=== PATIENT | male | born 1970 | race Two or more races ===

== ENCOUNTER 2017-02-10 12:28 | Observation (INO) | payer OTHER ==
[~2017-02-10] VITALS: Ht 167.6 cm; Wt 98.7 kg
[~2017-02-10 12:28] MED LIST: ALBU8.5H5 INH; CHOL20002 PO; LACT10SO38 PO; MULT-257 PO; PANT20TA2 PO; PROP20TA PO; SPIR25TA3 PO; VITA80004 PO
[2017-02-10] MEDS ORDERED: ONDANSETRON 2MG/ML, 2ML IVPush ONE (13:00)
[2017-02-10] MEDS ORDERED: SODIUM CHLORIDE FLUSH 10ML SYR IVF ONE (13:00)
[2017-02-10] MEDS ORDERED: MORPHINE SULFATE 4 MG/ML, 1ML ONE ×3 (13:21→19:36)
[2017-02-10] MEDS ORDERED: ONDANSETRON 2MG/ML, 2ML ONE (13:21)
[2017-02-10 13:35] LABS: BLOOD UREA NITROGEN 11 mg/dL (7-18)
[2017-02-10] MEDS: MORPHINE SULFATE 4 MG/ML, 1ML IVPush PRN ×4 (13:35→22:33)
[2017-02-10 13:42] LABS: ASPARTATE AMINO TRANSFERASE 58 U/L (15-37)
[2017-02-10] MEDS ORDERED: SODIUM CHLORIDE 0.9% 1,000 ML IV ONE (14:21)
[2017-02-10] MEDS ORDERED: ONDANSETRON 2MG/ML, 2ML IVPush PRN (14:30)
[2017-02-10] MEDS ORDERED: SODIUM CHLORIDE FLUSH 10ML SYR IVF PRN (14:30)
[2017-02-10] MEDS ORDERED: MORPHINE SULFATE 4 MG/ML, 1ML IVPush PRN (14:30)
[2017-02-10] MEDS ORDERED: ONDANSETRON ODT 4 MG PO PRN (15:30)
[2017-02-10] MEDS ORDERED: DOCUSATE 100 MG CAPSULE PO PRN (15:30)
[2017-02-10] MEDS ORDERED: APAP/CODEINE 300/30MG TABLET PO PRN (21:00)
[2017-02-10] MEDS ORDERED: ACETAMINOPHEN 325 MG TABLET PO PRN (21:00)
[2017-02-10] MEDS: OXYcodone IR 5MG TABLET PO PRN (21:11)
[2017-02-10] MEDS: LACTULOSE 10 GM/15 ML UDC PO SCH (21:15)
[2017-02-10] MEDS: ONDANSETRON 2MG/ML, 2ML IVP PRN (22:33)
[2017-02-11] MEDS ORDERED: PROMETHAZINE 25 MG/ML, 1ML IM PRN (00:30)
[2017-02-11] MEDS: MORPHINE SULFATE 4 MG/ML, 1ML IVPush PRN ×3 (01:29→09:59)
[2017-02-11 02:00] VITALS: BP 102/68
[2017-02-11] MEDS: ONDANSETRON 2MG/ML, 2ML IVP PRN (04:57)
[2017-02-11 05:53] LABS: BLOOD UREA NITROGEN 14 mg/dL (7-18)
[2017-02-11 06:01] LABS: ASPARTATE AMINO TRANSFERASE 56 U/L (15-37)
[2017-02-11 07:27] VITALS: BP 115/75
[2017-02-11] MEDS ORDERED: PANTOPRAZOLE 20MG TABLET PO SCH (09:00)
[2017-02-11] MEDS ORDERED: SPIRONOLACTONE 25 MG TABLET PO SCH (09:00)
[2017-02-11] MEDS: LACTULOSE 10 GM/15 ML UDC PO SCH (09:00)
[2017-02-11] MEDS ORDERED: CHOLECALCIFEROL 1,000 UNIT TABLET PO SCH (09:00)
[2017-02-11] MEDS ORDERED: PROPRANOLOL 20 MG TABLET PO SCH (09:00)
[2017-02-11] MEDS ORDERED: MULTIVITAMIN 1 TABLET PO SCH (09:00)
[2017-02-11] MEDS ORDERED: VITAMIN A 10,000 UNIT CAPSULE PO SCH (09:00)
[2017-02-11] MEDS ORDERED: FENTANYL PF 100 MCG/2ML ONE (11:31)
[2017-02-11] MEDS ORDERED: MIDAZOLAM 1 MG/ML, 5ML ONE (11:31)
[2017-02-11] MEDS ORDERED: NALOXONE 1 MG/ML, 2ML ONE (11:32)
[2017-02-11] MEDS ORDERED: OXYC5TAB3 PO (12:57)
[2017-02-11] MEDS ORDERED: Ondansetron PO (12:57)
[2017-02-11 14:00] VITALS: BP 108/53
[2017-02-11] MEDS: OXYcodone IR 5MG TABLET PO PRN (17:46)
[2017-02-11 20:07] VITALS: BP 117/60
== END 2017-02-11 21:16 | disposition home or self-care (01) ==
LOC: ED 14:07 → INTOOBSV 14:21 → EDIP 14:21 → 3NW 19:02
PROVIDERS: ADMIT Internal Medicine; ATTEND Internal Medicine
DX: R16.0 Hepatomegaly, not elsewhere classified (principal); K74.60 Unspecified cirrhosis of liver; R74.0 Nonspecific elevation of levels of transaminase and lactic acid dehydrogenase [LDH]; E44.0 Moderate protein-calorie malnutrition; E72.20 Disorder of urea cycle metabolism, unspecified; Z87.891 Personal history of nicotine dependence; Z87.19 Personal history of other diseases of the digestive system
CPT/HCPCS: 36415; 47000; 76942; 80053; 81001; 82140; 83690; 83880; 85025; 85610; 85730; 88307; 88313; 88333; 88342; 96361; 96372; 96374; 96375; 96376; 99285; G0378; J2250; J2405; J2550; J3010; J7030; G0461; J2310

== ENCOUNTER 2017-02-22 23:19 | Inpatient (IN) | payer OTHER ==
[~2017-02-22] VITALS: Ht 167.6 cm; Wt 108.7 kg
[~2017-02-22 23:19] MED LIST changes: +OXYC5TAB3 PO; +Ondansetron PO
[2017-02-23] MEDS: HYDROmorphone 1 MG/ML, 1ML IVPush PRN ×2 (00:16→07:01)
[2017-02-23 00:32] LABS: ASPARTATE AMINO TRANSFERASE 58 U/L (15-37); BLOOD UREA NITROGEN 10 mg/dL (7-18)
[2017-02-23] MEDS ORDERED: ONDANSETRON 2MG/ML, 2ML ONE ×2 (00:45→01:48)
[2017-02-23] MEDS ORDERED: HYDROmorphone 1 MG/ML, 1ML ONE (00:45)
[2017-02-23] MEDS ORDERED: OMNIPAQUE 350 MG/ML, 100ML BOTTLE ONE (01:09)
[2017-02-23] MEDS ORDERED: SODIUM CHLORIDE FLUSH 10ML SYR IVF ONE ×2 (01:30)
[2017-02-23] MEDS ORDERED: ONDANSETRON 2MG/ML, 2ML IVPush ONE ×2 (02:00)
[2017-02-23] MEDS ORDERED: FENTANYL PF 100 MCG/2ML IVPush ONE (02:00)
[2017-02-23] MEDS ORDERED: FENTANYL PF 100 MCG/2ML ONE ×3 (02:02→04:13)
[2017-02-23] MEDS ORDERED: LIDOCAINE 1%, 20ML ONE (02:19)
[2017-02-23] MEDS ORDERED: MIDAZOLAM 1 MG/ML, 5ML ONE (02:40)
[2017-02-23] MEDS ORDERED: FLUMAZENIL 0.1 MG/1 ML, 5ML ONE (02:40)
[2017-02-23] MEDS ORDERED: NALOXONE 1 MG/ML, 2ML ONE (02:40)
[2017-02-23 02:47] VITALS: BP 122/53
[2017-02-23] MEDS ORDERED: LABETALOL 5MG/ML, 20ML IV PRN (03:00)
[2017-02-23] MEDS ORDERED: TRAZODONE 50MG TABLET PO PRN (03:00)
[2017-02-23] MEDS ORDERED: DOCUSATE 100 MG CAPSULE PO PRN (03:00)
[2017-02-23] MEDS ORDERED: BISACODYL 10 MG SUPP PR PRN (03:00)
[2017-02-23] MEDS ORDERED: MORPHINE SULFATE 4 MG/ML, 1ML IVPush PRN (03:00)
[2017-02-23] MEDS ORDERED: POLYETHYLENE GLYCOL 17 GM PACKET PO PRN (03:00)
[2017-02-23 03:02] VITALS: BP 109/61
[2017-02-23] MEDS ORDERED: VISIPAQUE 320 MG/ML, 150ML BOTTLE ONE (04:00)
[2017-02-23] MEDS: ONDANSETRON 2MG/ML, 2ML IVP PRN ×3 (05:56→15:43)
[2017-02-23] MEDS: SODIUM CHLORIDE 0.9% 1,000 ML IV SCH ×3 (05:58→19:04)
[2017-02-23 06:16] VITALS: BP 99/57
[2017-02-23 06:32] VITALS: BP 102/65
[2017-02-23 06:41] VITALS: BP 101/67
[2017-02-23 06:45] LABS: BLOOD UREA NITROGEN 12 mg/dL (7-18)
[2017-02-23 06:48] LABS: ASPARTATE AMINO TRANSFERASE 50 U/L (15-37)
[2017-02-23 07:27] LABS: DIFF TOTAL CELLS COUNTED 100 CELL DIFF
[2017-02-23 07:30] LABS: ANISOCYTOSIS 1+; POLYCHROMASIA 1+; VERIFY COUNTS? YES
[2017-02-23 07:34] VITALS: BP 108/68
[2017-02-23] MEDS: PANTOPRAZOLE 40 MG IV IVP SCH (08:41)
[2017-02-23] MEDS ORDERED: LACTULOSE 10 GM/15 ML UDC PO SCH (09:00)
[2017-02-23] MEDS: HYDROmorphone 2 MG/ML, 1ML IVPush PRN ×4 (09:02→16:31)
[2017-02-23] MEDS: LACTULOSE 10 GM/15 ML UDC PO SCH ×2 (11:00→21:17)
[2017-02-24] MEDS: HYDROmorphone 2 MG/ML, 1ML IVPush PRN ×3 (00:26→09:03)
[2017-02-24] MEDS: SODIUM CHLORIDE 0.9% 1,000 ML IV SCH ×2 (01:55→09:05)
[2017-02-24] MEDS: ONDANSETRON 2MG/ML, 2ML IVP PRN (05:16)
[2017-02-24 05:22] LABS: BLOOD UREA NITROGEN 24 mg/dL (7-18)
[2017-02-24 06:42] LABS: DIFF TOTAL CELLS COUNTED 100 CELL DIFF
[2017-02-24 06:52] LABS: ANISOCYTOSIS 1+; POLYCHROMASIA 1+; VERIFY COUNTS? YES
[2017-02-24] MEDS ORDERED: PROPOFOL 10 MG/ML, 100ML IV ONE (08:00)
[2017-02-24] MEDS ORDERED: VECURONIUM 10 MG ONE (08:00)
[2017-02-24] MEDS ORDERED: PROPOFOL 10 MG/ML, 20ML ONE (08:00)
[2017-02-24 08:33] LABS: ASPARTATE AMINO TRANSFERASE > 10000 U/L (15-37)
[2017-02-24] MEDS: LACTULOSE 10 GM/15 ML UDC PO SCH ×2 (09:00→09:05)
[2017-02-24 09:03] LABS: POTASSIUM,URINE RANDOM 24 mmol/L
[2017-02-24] MEDS: PANTOPRAZOLE 40 MG IV IVP SCH (09:05)
[2017-02-24] MEDS ORDERED: DEXTROSE 5% IV ONE (09:30)
[2017-02-24] MEDS ORDERED: RIFAXIMIN 550 MG TABLET PO SCH (09:30)
[2017-02-24] MEDS ORDERED: ACETYLCYSTEINE IV ONE (09:30)
[2017-02-24] MEDS ORDERED: ALBUMIN HUMAN 25% 100 ML IV SCH (10:00)
[2017-02-24] MEDS ORDERED: SODIUM CHLORIDE 0.9% 1,000ML IVBOLUS ONE (10:00)
[2017-02-24] MEDS ORDERED: INSULIN ASPART 100 UNITS/ML, PEN SQ-INSULIN ONE (10:00)
[2017-02-24] MEDS ORDERED: CALCIUM GLUCONATE 4.6 MEQ/10 ML IVPush ONE (10:00)
[2017-02-24] MEDS ORDERED: SODIUM ACETATE 75 MEQ in SODIUM CHLORIDE 0.45% 1,000 ML IV SCH (10:00)
[2017-02-24] MEDS ORDERED: DEXTROSE 50%, 50ML SYRINGE IVPush ONE (10:00)
[2017-02-24] MEDS ORDERED: PHENYLEPHRINE 10 MG/ML ONE ×2 (10:14→14:49)
[2017-02-24] MEDS ORDERED: CALCIUM GLUCONATE 4.6 MEQ in SODIUM CHLORIDE 0.9% 50 ML IV ONE (10:30)
[2017-02-24] MEDS ORDERED: NOREPINEPHRINE 4 MG in SODIUM CHLORIDE 0.9% 246 ML IV PRN (11:00)
[2017-02-24] MEDS ORDERED: PROPOFOL 100 ML IV PRN (11:05)
[2017-02-24] MEDS ORDERED: LIDOCAINE-MPF 1%, 2ML ENDO PRN (11:30)
[2017-02-24] MEDS ORDERED: PHENYLEPHRINE 20 MG in SODIUM CHLORIDE 0.9% 248 ML IV PRN (11:30)
[2017-02-24] MEDS ORDERED: PHARMACY MAY ADJ FOR RENAL FX MC SCH (11:30)
[2017-02-24] MEDS ORDERED: VASOPRESSIN 100 UNIT in SODIUM CHLORIDE 0.9% 495 ML IV PRN (12:30)
[2017-02-24] MEDS ORDERED: DEXTROSE 50%, 50ML VIAL ONE (12:40)
[2017-02-24 15:02] LABS: HEP B SURF. AB 507.5 mIU/mL (0.0-10.0)
[2017-02-24 15:12] VITALS: BP 48/33
[2017-02-24 15:28] VITALS: BP 60/32
[2017-02-24] MEDS ORDERED: NOREPINEPHRINE 8 MG in SODIUM CHLORIDE 0.9% 242 ML IV PRN (16:00)
== END 2017-02-24 22:56 | disposition expired | DRG 435 ==
LOC: ED 23:59 → EDIP 02-23 02:21 → CCU 02-23 05:31
PROVIDERS: ADMIT Internal Medicine; ATTEND Internal Medicine
PROC: 02H633Z Insertion of Infusion Device into Right Atrium, Percutaneous Approach (ICD-10-PCS; principal; 2017-02-24)
PROC: B244ZZZ Ultrasonography of Right Heart (ICD-10-PCS; 2017-02-24)
PROC: 30233L1 Transfusion of Nonautologous Fresh Plasma into Peripheral Vein, Percutaneous Approach (ICD-10-PCS; 2017-02-24)
PROC: 30233N1 Transfusion of Nonautologous Red Blood Cells into Peripheral Vein, Percutaneous Approach (ICD-10-PCS; 2017-02-24)
PROC: 30233K1 Transfusion of Nonautologous Frozen Plasma into Peripheral Vein, Percutaneous Approach (ICD-10-PCS; 2017-02-24)
PROC: 5A1935Z Respiratory Ventilation, Less than 24 Consecutive Hours (ICD-10-PCS; 2017-02-24)
PROC: 0BH17EZ Insertion of Endotracheal Airway into Trachea, Via Natural or Artificial Opening (ICD-10-PCS; 2017-02-24)
DX: C22.0 Liver cell carcinoma (principal); G93.41 Metabolic encephalopathy; I81 Portal vein thrombosis; K76.6 Portal hypertension; N17.9 Acute kidney failure, unspecified; D62 Acute posthemorrhagic anemia; E87.2 Acidosis; R57.1 Hypovolemic shock; G89.29 Other chronic pain; K21.9 Gastro-esophageal reflux disease without esophagitis; Z82.49 Family history of ischemic heart disease and other diseases of the circulatory system; Z80.7 Family history of other malignant neoplasms of lymphoid, hematopoietic and related tissues; Z87.891 Personal history of nicotine dependence; E88.09 Other disorders of plasma-protein metabolism, not elsewhere classified; K70.30 Alcoholic cirrhosis of liver without ascites; K70.40 Alcoholic hepatic failure without coma; F10.10 Alcohol abuse, uncomplicated; E87.5 Hyperkalemia
CPT/HCPCS: 36415; 36430; 36556; 37244; 71010; 74177; 76700; 76937; 77001; 80048; 80053; 80076; 81001; 82105; 82140; 82436; 83690; 83735; 83935; 84133; 84300; 84478; 85014; 85018; 85025; 85384; 85610; 85730; 86704; 86706; 86850; 86900; 86923; 87070; 87081; 87205; 87340; 93005; 94002; 96374; 96375; 96376; 99156; 99157; C1894; J0132; J0610; J1170; J1815; J2250; J2405; J2704; J3010; J3490; J7060; P9047; Q9967; C1751; C1760; C1769; C9113; J1642; J2310; J2370; J7030; J7040; J7050; P9016; P9017